=== PATIENT | female | born 1960 | race Caucasian/White ===

== ENCOUNTER 2020-01-02 09:52 | Outpatient (CLI) | payer BC, SELFPAY ==
--- NOTE | ~2020-01-02 | MM_ITS ---
EXAMINATION: MM screening shaheen BI w maliha HISTORY: Screening mammogram TECHNIQUE: Craniocaudal and mediolateral oblique 3-D tomosynthesis images were obtained and synthetic 2-D images were generated. CAD analysis was submitted and interpreted. COMPARISON: 12/23/2018, 12/07/2017, 06/27/2016 bilateral digital screening mammogram examinations BREAST PARENCHYMAL COMPOSITION: The breasts are almost entirely fatty. FINDINGS: There is no evidence of suspicious mass, calcification, or architectural distortion to sugg est malignancy in either breast. There has been no suspicious interval change. IMPRESSION: 1. No mammographic evidence of malignancy. 2. Recommend routine screening mammography in one year. BI-RADS Category 1: Negative Reviewed, dictated and finalized at location A.
== END 2020-01-02 09:53 | disposition home or self-care (01) ==
LOC: ANHIMG 09:54
PROVIDERS: PCP Family Medicine; Visit Provider Family Medicine
DX: Z12.31 Encounter for screening mammogram for malignant neoplasm of breast (principal)
CPT/HCPCS: 77063; 77067

== ENCOUNTER 2021-01-04 10:30 | Outpatient (CLI) | payer BC, SELFPAY ==
--- NOTE | ~2021-01-04 | MM_ITS ---
EXAMINATION: MM screening shaheen BI w maliha HISTORY: Screening mammogram TECHNIQUE: Craniocaudal and mediolateral oblique 3-D tomosynthesis images were obtained and synthetic 2-D images were generated. CAD analysis was submitted and interpreted. COMPARISON: 01/02/2020, 12/13/2018, 12/07/2017 bilateral digital screening mammogram examinations BREAST PARENCHYMAL COMPOSITION: The breasts are almost entirely fatty. FINDINGS: A biopsy marker is noted in the upper outer left breast; history of prior benign left breas t biopsy. Stable circumscribed small benign-appearing intramammary lymph node, posterior outer mid to upper lef t breast. There is no evidence of suspicious mass, calcification, or architectural distortion to suggest malign zakia in either breast. There has been no suspicious interval change. IMPRESSION: 1. No mammographic evidence of malignancy. 2. Recommend routine screening mammography in one year. BI-RADS Category 1: Negative Reviewed, dictated and finalized at location A.
== END 2021-01-04 10:31 | disposition home or self-care (01) ==
LOC: ANHIMG 10:32
PROVIDERS: PCP Family Medicine; Visit Provider Family Medicine
DX: Z12.31 Encounter for screening mammogram for malignant neoplasm of breast (principal)
CPT/HCPCS: 77063; 77067

== ENCOUNTER 2022-03-03 14:47 | Outpatient (CLI) | payer BC, SELFPAY ==
--- NOTE | ~2022-03-03 | MM_ITS ---
EXAMINATION: MM screening shaheen BI w maliha HISTORY: Screening mammogram TECHNIQUE: Craniocaudal and mediolateral oblique 3-D tomosynthesis images were obtained and synthetic 2-D images were generated. CAD analysis was submitted and interpreted. COMPARISON: 01/04/2021, 01/02/2020, 12/13/2018 bilateral screening mammogram examinations BREAST PARENCHYMAL COMPOSITION: The breasts are almost entirely fatty. FINDINGS: Biopsy marker is again noted on the left; history of prior benign left breast biopsy. There is no evidence of suspicious mass, calcification, or architectural distortion to suggest malignancy in either breast. There has been no suspicious interval change. IMPRESSION: 1. No mammographic evidence of malignancy. 2. Recommend routine screening mammography in one year. BI-RADS Category 1: Negative Reviewed, dictated and finalized at location A.
== END 2022-03-03 14:48 | disposition home or self-care (01) ==
LOC: ANHIMG 14:49
PROVIDERS: PCP Family Medicine; Visit Provider Family Medicine
DX: Z12.31 Encounter for screening mammogram for malignant neoplasm of breast (principal)
CPT/HCPCS: 77063; 77067

== ENCOUNTER 2023-07-27 10:05 | Outpatient (CLI) | payer MEDICARE, SELFPAY ==
--- NOTE | ~2023-07-27 | MM_ITS ---
EXAMINATION: MM screening shaheen BI w maliha HISTORY: Screening TECHNIQUE: Craniocaudal and mediolateral oblique 3-D tomosynthesis images were obtained and synthetic 2-D images were generated. CAD analysis was submitted and interpreted. COMPARISON: Comparison to multiple prior studies sequentially, with oldest reviewed study dated 08/2016. BREAST PARENCHYMAL COMPOSITION: The breasts are almost entirely fatty. FINDINGS: There is no evidence of suspicious mass, calcification, or architectural distortion to sugg est malignancy in either breast. There has been no suspicious interval change. IMPRESSION: 1. No mammographic evidence of malignancy. 2. Recommend routine screening mammography in one year. BI-RADS Category 1: Negative Reviewed, dictated and finalized at location A. FACTURING ENGINEER
== END 2023-07-27 10:06 | disposition home or self-care (01) ==
LOC: ANHIMG 10:09
PROVIDERS: PCP Family Medicine; Visit Provider Family Medicine
DX: Z12.31 Encounter for screening mammogram for malignant neoplasm of breast (principal)
CPT/HCPCS: 77063; 77067

== ENCOUNTER 2024-08-02 14:19 | Outpatient (CLI) | payer MEDICARE, SELFPAY ==
--- NOTE | ~2024-08-02 | MM_ITS ---
EXAMINATION: MM screening [facility] BI w maliha HISTORY: Screening mammogram TECHNIQUE: Craniocaudal and mediolateral oblique 3-D tomosynthesis images were obtained and synthetic 2-D images were generated. CAD analysis was submitted and interpreted. COMPARISON: 07/27/2023, 03/03/2022, 01/04/2021, 01/02/2020 BREAST PARENCHYMAL COMPOSITION:Not Dense. The breasts are almost entirely fatty FINDINGS: No suspicious mass, calcification, or architectural distortion are identified in either rajni ast to suggest malignancy. There has been no suspicious interval change. IMPRESSION: No mammographic evidence of malignancy. Recommend routine screening mammography in one year. BI-RADS Category 1: Negative Reviewed, dictated and finalized at location . R POLLUTION SCIENTIST
--- OUTSIDE RECORDS SUMMARY | 2024-08-02 16:36 | XMS_ITS | Clinical Summary ---
Author Organization [facility] Address [address], [address] [address] Phone Care Team Providers Care Maintenance Mechanic Technician Name Role Phone Randy Marcus MD Primary Care Provider [phone] Nick Cr DO Unavailable [phone] Allergies Active Allergy Reactions Criticality Noted Date Comments Codeine Sulfate Unknown Penicillins Unknown Medications atorvastatin (LIPITOR) 10 MG Tablet Take 10 mg by mouth daily. Active losartan potassium-hydro chlorothiazide (HYZAAR) 100-25 MG Tablet Take 1 Tab by mouth daily. Active Fluticasone Propionate (FLONASE NA) by Nasal route. Active folic acid (FOLVITE) 1 MG Tablet TAKE 1 TABLET DAILY 90 Tablet 3 10/23/2020 Active balsalazide (COLAZAL) 750 MG Capsule TAKE 3 CAPSULES THREE TIMES A DAY 90 Capsule 05/06/2021 Active Active Problems Problem Noted Date Diagnosed Date Ulcerative colitis Family History Medical History Relation Name Comments Heart Attack Father Hypertension Mother Relation Name Status Comments Father Mother Social History Tobacco Use Types Packs/Day Years Used Date Smoking Tobacco: Never Smokeless Tobacco: Never Tobacco Cessation:Counseling Given: No Alcohol Use Standard Drinks/Week Comments No 0 (1 standard drink = 0.6 oz pur e alcohol) Comments No Sex and Gender Information Value Date Recorded Sex Assigned at Not on file Legal Sex Female 10:46 PM CDT Gender Identity Not on file Sexual Orientation Not on file 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 Not on file Not on f ile Last Filed Vital Signs Vital Sign Reading Time Taken Comments Blood Pressure 144/90 01/16/2020 1:15 PM CDT Pulse 78 01/16/2020 1:15 PM CDT Temperature 36.1 C (97 F) 01/16/2020 1:15 PM CDT Respiratory Rate 16 01/16/2020 1:15 PM CDT Oxygen Saturation 98% 01/16/2020 1:15 PM CDT Inhaled Oxygen Concentration - - Weight 92.1 kg (203 lb) 01/16/2020 1:15 PM CDT Height 162.6 cm (5' 4 ) 06/19/2016 2:37 PM JAVA PROGRAMMER ANALYST Body Mass Index 34.84 06/19/2016 2:37 PM JAVA PROGRAMMER ANALYST Plan of Treatment Health Maintenance Due Date Last Done Comments Hepatitis C Virus (HCV) Screening 1960 TdaP Immunization 1960 Cologuard 2008 Immunochemical Fecal Occult Blood 2008 Mammogram 2008 Pneumococcal Immunization (50+ years) (1 of 1 - PCV) 2008 Zoster Immunization (1 of 2) 2008 Colonoscopy 06/09/2021 06/09/2019, 11/07, 05/17/2015, Additional history exists Colorectal Cancer Screening 06/09/2021 Influenza Immunization (#1) 2024 SARS-COV-2 Immunization ( - 2023-25 season) 2024 Respiratory Syncytial Virus (RSV) Immunization (Adult) (1 - 1-dose 75+ series) 2033 06/09/2019, 11/07, 05/17/2015, Additional history exists DEXA Bone Density Discontinued 07/28/2016 Hepatitis B Immunization Aged Out No longer eligible based on patient's age to complete this topic Meningococcal Immunization (ACWY) Aged Out No longer eligible based on patient's age to complete this topic Rotavirus Immunization Aged Out No lo nger eligible based on patient's age to complete this topic Procedures Procedure Name Priority Date/Time Associated Diagnosis Comments HM COLONOSCOPY Routine 06/09/2019 MESSI BONE DENSITOMETRY AXIAL SKELETON Routine 07/28/2016 10:38 AM JAVA PROGRAMMER ANALYST Ulcerative proctitis without complication (<HCC>) from Last 3 Months or Most Recently Relevant to Health Maintenance Results * HM COLONOSCOPY (06/09/2019) Nick Cr DO PROCEDURE/MINOR SURGICAL ORDERA BLES Final Result * MESSI BONE DENSITOMETRY AXIAL SKELETON (07/28/2016 10:38 AM JAVA PROGRAMMER ANALYST) Anatomical Region Laterality Modality BODY N/A Other 07/28/2016 12:5 7 PM JAVA PROGRAMMER ANALYST Impressions 07/28/2016 1:00 PM JAVA PROGRAMMER ANALYST IMPRESSION: Normal bone mineral density by WHO criteria. Bone mineral density: Normal (T-score above or = -1.0) Low bone mass (T-score between -1.0 and -2.5) replaces the previously used term osteopenia Osteoporosis (T-score = or below -2.5) Medical evaluation for secondary causes of low bone mineral density may be appropriate. FRAX is a World Health Organization validated fracture risk assessment tool that calculates a person's 10 year probability of a major osteoporosis related fracture and hip fracture. According to the National Osteoporosis Foundation guidelines, postmenopausal women and men age 50 or older with low bone mass and a 10 year probability of a major osteoporosis related fracture = or greater than 20% or a 10 year probability of a hip fracture = or greater than 3% should be considered for treatment. For further information, including treatment recommendations, please refer to the 2013 ISCD Official Positions (http://www.iscd.org) and the NOF's Clinician's Guide to Prevention and Treatment of Osteoporosis (http://www.nof.org/professionals/clinical-guidelines) Narrative 07/28/2016 1:00 PM JAVA PROGRAMMER ANALYST EXAMINATION: Bone density examination (hip and spine). HISTORY: 56 year old postmenopausal female with given history of ulcerative proctitis. Current Height: 64 inches Maximum Height: 64 inches Weight: 190 pounds RISK FACTORS: None. COMPARISON(S): None. PROCESS MACHINE OPERATOR/Tara. [employer] (S/N [id number]: FINDINGS: AP lumbar spine L1-L4 Total BMD is 1.136 g/dx1X-awghy is -0.5 Left Hip Total BMD is 0.996 g/sj1E-ysfvq is -0.1 Neck BMD is 0.893 g/vo7J-duxev is -1.0 THIS IS AN ELECTRONICALLY VERIFIED REPORT 07/28/2016 12:57 PM: Carla Goldsmith M.D. Radiologist AB: KATE Procedure Note Neri Skelton MD - 07/28/2016 EXAMINATION: Bone density examination (hip and spine). HISTORY: 56 year old postmenopausal female with given history of ulcerative proctitis. Current Height: 64 inches Maximum Height: 64 inches Weight: 190 pounds RISK FACTORS: None. COMPARISON(S): None. PROCESS MACHINE OPERATOR/MODESt. [employer] (S/N [id number]: FINDINGS: AP lumbar spine L1-L4 Total BMD is 1.136 g/mk5N-hfwlg is -0.5 Left Hip Total BMD is 0.996 g/pz7A-gvhgf is -0.1 Neck BMD is 0.893 g/xt7E-aeubf is -1.0 THIS IS AN ELECTRONICALLY VERIFIED REPORT 07/28/2016 12:57 PM: Carla Goldsmith M.D. Radiologist AB: KATE IMPRESSION: Normal bone mineral density by WHO criteria. Bone mineral density: Normal (T-score above or = -1.0) Low bone mass (T-score between -1.0 and -2.5) replaces the previously used term osteopenia Osteoporosis (T-score = or below -2.5) Medical evaluation for secondary causes of low bone mineral density may be appropriate. FRAX is a World Health Organization validated fracture risk assessment tool that calculates a person's 10 year probability of a major osteoporosis related fracture and hip fracture. According to the National Osteoporosis Foundation guidelines, postmenopausal women and men age 50 or older with low bone mass and a 10 year probability of a major osteoporosis related fracture = or greater than 20% or a 10 year probability of a hip fracture = or greater than 3% should be considered for treatment. For further information, including treatment recommendations, please refer to the 2013 ISCD Official Positions (http://www.iscd.org) and the NOF's Clinician's Guide to Prevention and Treatment of Osteoporosis (http://www.nof.org/professionals/clinical-guidelines) us Jessica Reed NIGHT WORKER, ATTENDANT COIN OPERATED LAUNDRY IMG DEXA ORDERABLES Kristen l Result from Last 3 Months or Most Recently Relevant to Health Maintenance Insurance [facility] Care Teams Maintenance Mechanic Technician Relationship Specialty Start Date End Date Randy Marcus MD [address] [place] [address] PCP - General Family Medicine 05/17/15 Nick Cr DO [address] [place] [address] Gastroenterology 12/08/16
--- OUTSIDE RECORDS SUMMARY | 2024-08-02 16:36 | XMS_ITS | Encounter Summary ---
Author Organization [facility] Address [address] [place] [address] Phone Care Team Providers Care Supervisor Pigment Making Name Role Phone Randy Marcus MD Primary Care Provider [phone] Nick Cr DO Unavailable [phone] Reason for Visit * Reason Comments Medication Refill Encounter Details Date Type Department Care Team (Late st Contact Info) Description 04/30/2021 Refill [facility] - [facility] - [place] [address] [place] [address] Yaneth Madera Jeimy, [facility] [address] [place] [address] Medication Refill Social History Tobacco Use Types Packs/Day Years Used Date Smoking Tobacco: Never Smokeless Tobacco: Never Alcohol Use Standard Drinks/Week Comments No 0 (1 standard drink = 0.6 oz pur e alcohol) Comments No Sex and Gender Information Value Date Recorded Sex Assigned at Not on file Legal Sex Female 10:46 PM CDT Gender Identity Not on file Sexual Orientation Not on file 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 Requested Prescriptions Pending Prescriptions Disp Refills balsalazide (COLAZAL) 750 MG Capsule [Pharmacy Med Name: BALSALAZIDE DISODIUM CAPS 750MG] 810 Capsule 3 Sig: TAKE 3 CAPSULES THREE TIMES A DAY Inflammatory Bowel Agents Protocol Failed - 04/30/2021 11:36 PM Failed - CBC on record in past 12 months No results found for: WBC, RBC, HEMATOCRIT, HEMOGLOBIN, MCV, MCH, MCHC Failed - Serum creatinine on record in past 12 months No results found for: CREATININE Failed - Urinalysis on record in past 12 months No results found for: USPG, URINEPH, ULEUK, UNIT, PROTEINRNUR, UGLQUAL, UKET, UROB, URINEBILI, URINERBC, URCOLOR, URCLARITY Passed - Visit with relevant provider in past 6 months or upcoming 90 days Recent Visits No visits were found meeting these conditions. Showing recent visits within past 182 days and meeting all other requirements Future Appointments Date Type Provider Dept 05/09/21 Appointment Yaneth Madera Jeimy, PAC [facility] [place] Showing future appointments within next 90 days and meeting all other requirements RICT OPERATIONS MANAGER documented in this encounter Plan of Treatment Not on file documented as of this encounter Visit Diagnoses Not on filedocumented in this encounter Care Teams Supervisor Pigment Making Relationship Specialty Start Date End Date Randy Marcus MD [address] [address] PCP - General Family Medicine 05/17/15 [place] [address] [address] Gastroenterology 12/08/16 documented as of this encounter
--- OUTSIDE RECORDS SUMMARY | 2024-08-02 16:36 | XMS_ITS | Encounter Summary ---
Author Organization [facility] Address [address] 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 balsalazide (COLAZAL) 750 MG Capsule [Pharmacy Med Name: BALSALAZIDE DISODIUM CAPS 750MG] 810 Capsule 3 Sig: TAKE 3 CAPSULES THREE TIMES A DAY Last fill: 08/07/2020 Patients last OV with GI: 01/16/2020 Next Office Visit with GI: None scheduled documented in this encounter Plan of Treatment Not on file documented as of this encounter Visit Diagnoses Not on filedocumented in this encounter Care Teams Aitchbone Breaker Relationship Specialty Start Date End Date Randy Marcus [place] [address] [address] PCP - General Family Medicine 05/17/15 Nick Cr [place] [address] [address] Gastroenterology 12/08/16 documented as of this encounter
--- OUTSIDE RECORDS SUMMARY | 2024-08-02 16:36 | XMS_ITS | Clinical Summary ---
Author Organization [facility] Address [address] [place] [address] Care Team Providers Care Staff Educator Name Role Phone Randy Marcus MD Primary Care Provider [phone] Allergies Active Allergy Reactions Criticality Noted Date Comments Codeine GI Upset 05/29/2022 Penicillins Anaphylaxis High 06/02/2012 As a child Medications Potassium 99 MG tablet Take 1 tablet by mouth daily. Active Multiple Vitamin (MULTI-VITAMIN) tablet Take 1 tablet by mouth daily. Active losartan-hydroC HLOROthiazide (HYZAAR) 100-25 MG tablet Take 1 tablet by mouth daily. 06/26/2012 Active loratadine (CLARITIN) 10 MG tablet Take 1 tablet by mouth daily. Active vitamin B-12 (CYANOCOBALAMIN ) 100 MCG tablet Take 1 tablet by mouth daily. Active balsalazide (COLAZAL) 750 MG capsule Take 2,250 mg by mouth 3 (three) times daily. Active folic acid (FOLVITE) 1 MG tablet Take 1 mg by mouth daily. Active metoprolol succinate ER (TOPROL-XL) 50 MG 24 hr tablet Take by mouth daily. Active atorvastatin (LIPITOR) 20 MG tablet Take 20 mg by mouth nightly at bedtime. Active Fluticasone Propionate (FLONASE NA) Active Social History Tobacco Use Types Packs/Day Years Used Date Smoking Tobacco: Never Smokeless Tobacco: Never Tobacco Cessation:Counseling Given: Not Answered Alcohol Use Standard Drinks/Week Comments Not Asked 0 (1 standard drink = 0.6 oz pur e alcohol) rarely Comments No Sex and Gender Information Value Date Recorded Sex Assigned at Not on file Legal Sex Female 9:40 PM CDT Gender Identity Not on file Sexual Orientation Not on file Last Filed Vital Signs Vital Sign Reading Time Taken Comments Blood Pressure 146/94 05/29/2022 8:30 AM SANDER SETTER Pulse 73 05/29/2022 8:30 AM SANDER SETTER Temperature 37.1 C (98.7 F) 05/29/2022 8:07 AM SANDER SETTER Respiratory Rate 16 05/29/2022 8:30 AM SANDER SETTER Oxygen Saturation 98% 05/29/2022 8:30 AM SANDER SETTER Inhaled Oxygen Concentration - - Weight 77.1 kg (170 lb) 05/19/2022 4:43 PM SANDER SETTER Height 162.6 cm (5' 4 ) 05/19/2022 4:43 PM SANDER SETTER Body Mass Index 29.18 05/19/2022 4:43 PM SANDER SETTER Plan of Treatment Health Maintenance Due Date Last Done Comments Hepatitis C 1976 DTaP, Tdap and Td Vaccines ( 1 - Tdap) 1977 Mammogram Screening 1998 Zoster Vaccines (1 of 2) 2008 Dexa Scan (General) 2023 Pneumococcal Vaccine: 65+ Years (1 of 1 - PCV) 2023 COVID-19 Vaccine (4 - 2023-2 5 season) 2024 06/03/2021, 08/18/2020, 07/21/2020 Influenza Adult (#1) 2024 Colorectal Cancer Screening Colonoscopy (10 Years) 05/29/2032 05/29/2022, 05/29/2022 RSV Immunization or 60+ Years (1 - 1-dose 75+ series) 2033 Meningococcal B Vaccine Aged Out No l onger eligible based on patient's age to complete this topic Meningococcal Vaccine Aged Out No herber rere eligible based on patient's age to complete this topic RSV Immunizations Under 20 Months Aged Out No longer eligible b ased on patient's age to complete this topic Procedures Procedure Name Priority Date/Time Associated Diagnosis Comments COLONOSCOPY Routine 05/29/2022 6:28 AM SANDER SETTER from Last 3 Months or Most Recently Relevant to Health Maintenance Insurance [facility] Care Teams Staff Educator Relationship Specialty Start Date End Date Randy Marcus MD [address] [place] [address] PCP - General FAMILY PRACTICE 05/29/22
--- OUTSIDE RECORDS SUMMARY | 2024-08-02 16:37 | XMS_ITS | Encounter Summary ---
Author Organization [facility] Address [address] [place] [address] Care Team Providers Care Wood Inspector Name Role Phone Randy Marcus MD Primary Care Provider [phone] Encounter Details Date Type Department Care Team (Latest Contact Info) Description 04/13/2018 Abstract [facility] , Ashly Au MD Social History Tobacco Use Types Packs/Day Years Used Date Smoking Tobacco: Never Assessed Comments Unknown Sex and Gender Information Value Date Recorded Sex Assigned at Not on file Legal Sex Female 9:40 PM CDT Gender Identity Not on file Sexual Orientation Not on file documented as of this encounter Plan of Treatment Not on file documented as of this encounter Visit Diagnoses Not on filedocumented in this encounter Care Teams Wood Inspector Relationship Specialty Start Date End Date Randy Marcus MD [address] [place] [address] PCP - General FAMILY PRACTICE 05/29/22 documented as of this encounter
== END 2024-08-02 14:20 | disposition home or self-care (01) ==
LOC: ANHIMG 14:20
PROVIDERS: PCP Family Medicine; Visit Provider Family Medicine
DX: Z12.31 Encounter for screening mammogram for malignant neoplasm of breast (principal)
CPT/HCPCS: 77063; 77067

== ENCOUNTER 2024-12-13 08:19 | Outpatient (CLI) | payer MEDICARE, SELFPAY ==
--- OUTSIDE RECORDS SUMMARY | 2024-12-13 08:22 | XMS_ITS | Encounter Summary ---
Author Organization [facility] Address [address] [place] [address] Care Team Providers Care Shirt Operator Name Role Phone Randy Marcus MD Primary Care Provider [phone] Encounter Details Date Type Department Care Team (Latest Contact Info) Description 04/13/2018 Abstract [facility] , Ashly Au MD [...] on filedocumented in this encounter Care Teams Shirt Operator Relationship Specialty Start Date End Date Randy Marcus MD [address] [place] [address] PCP - General FAMILY PRACTICE 05/29/22 documented as of this encounter
--- OUTSIDE RECORDS SUMMARY | 2024-12-13 08:22 | XMS_ITS | Encounter Summary ---
Author Organization [facility] Address [address] [facility] 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 file Not on f ile documented as of this encounter Miscellaneous Notes * Telephone Encounter - An Hadley RN - 05/03/2021 10:35 AM SUPERVISOR CIGAR PROCESSING Medication failed the protocol, provider to review [...] Appointment Yaneth Madera Jeimy, PAC [facility] [place] Showing future appointments within next 90 days and meeting all other requirements RVISOR CIGAR PROCESSING documented in this encounter Plan of Treatment Not on file documented as of this encounter Visit Diagnoses Not on filedocumented in this encounter Care Teams Spare Hand Relationship Specialty Start Date End Date Randy Marcus MD [address] [place] [address] PCP - General Family Medicine 05/17/15 Nick Cr [place] [address] [address] Gastroenterology 12/08/16 documented as of this encounter
--- OUTSIDE RECORDS SUMMARY | 2024-12-13 08:22 | XMS_ITS | Clinical Summary ---
Author Organization [facility] [place] [facility] Address [address] [place] [id number] Care Team Providers Care Seal Skinner Name Role Phone Randy Marcus MD Primary Care Provider [phone] Allergies Active Allergy Reactions Criticality Noted Date [...] Comments Blood Pressure 146/94 05/29/2022 8:30 AM RESTAURANT CULINARY MANAGER Pulse 73 05/29/2022 8:30 AM RESTAURANT CULINARY MANAGER Temperature 37.1 C (98.7 F) 05/29/2022 8:07 AM RESTAURANT CULINARY MANAGER Respiratory Rate 16 05/29/2022 8:30 AM RESTAURANT CULINARY MANAGER Oxygen Saturation 98% 05/29/2022 8:30 AM RESTAURANT CULINARY MANAGER Inhaled Oxygen Concentration - - Weight 77.1 kg (170 lb) 05/19/2022 4:43 PM RESTAURANT CULINARY MANAGER Height 162.6 cm (5' 4) 05/19/2022 4:43 PM RESTAURANT CULINARY MANAGER Body Mass Index 29.18 05/19/2022 4:43 PM RESTAURANT CULINARY MANAGER Plan of Treatment Health Maintenance Due Date Last Done Comments Hepatitis C 1976 DTaP, Tdap and Td Vaccines ( 1 - Tdap) 1977 Mammogram Screening 1998 Pneumococcal Vaccine: 50+ Years (1 of 1 - PCV) 2008 Zoster Vaccines (1 of 2) 2008 Dexa Scan (General) 2023 COVID-19 Vaccine ( - 2023-2 5 season) 2024 06/03/2021, 08/18/2020, 07/21/2020 Colorectal Cancer Screening Colonoscopy (10 Years) 05/29/2032 [...] Diagnosis Comments COLONOSCOPY Routine 05/29/2022 6:28 AM RESTAURANT CULINARY MANAGER from Last 3 Months or Most Recently Relevant to Health Maintenance Insurance Care Teams Seal Skinner Relationship Specialty Start Date End Date Randy Marcus MD [address] [place] [address] PCP - General FAMILY PRACTICE 05/29/22
--- OUTSIDE RECORDS SUMMARY | 2024-12-13 08:22 | XMS_ITS | Encounter Summary ---
Author Organization [facility] Address [address] 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
--- OUTSIDE RECORDS SUMMARY | 2024-12-13 08:22 | XMS_ITS | Clinical Summary ---
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 Not on [...] 1:15 PM CDT Height 162.6 cm (5' 4) 06/19/2016 2:37 PM ROCK CRUSHER OPERATOR Body Mass Index 34.84 06/19/2016 2:37 PM ROCK CRUSHER OPERATOR Plan of Treatment Health Maintenance Due Date Last Done Comments Hepatitis C Virus (HCV) Screening 1960 TdaP Immunization 1960 Cologuard 2003 Immunochemical Fecal Occult Blood 2003 Pneumococcal Immunization (50+ years) (1 of 1 - PCV) 2008 Zoster Immunization (1 of 2) 2008 Colonoscopy 06/09/2021 06/09/2019, 06/02/2017, 05/17/2015, Additional history exists Colorectal Cancer Screening 06/09/2021 SARS-COV-2 Immunization ( - 2023- season) 2024 Influenza Immunization (#1) 2025 Respiratory Syncytial Virus (RSV) Immunization (Adult) (1 - 1-dose 75+ series) 2033 DEXA Bone Density Discontinued 07/28/2016 Hepatitis B Immunization Aged Out No longer eligible based on patient's age to complete this topic Human Papillomavirus (HPV) Immunization Aged Out No longer eligible based [...] DENSITOMETRY AXIAL SKELETON Routine 07/28/2016 10:38 AM ROCK CRUSHER OPERATOR Ulcerative proctitis without complication (<HCC>) from Last 3 Months or Most Recently Relevant to Health Maintenance Results * HM COLONOSCOPY (06/09/2019) Nick Cr DO PROCEDURE/MINOR SURGICAL ORDERA BLES Final Result * MESSI BONE DENSITOMETRY AXIAL SKELETON (07/28/2016 10:38 AM ROCK CRUSHER OPERATOR) Anatomical Region Laterality Modality BODY N/A Other 07/28/2016 12:5 7 PM ROCK CRUSHER OPERATOR Impressions 07/28/2016 1:00 PM ROCK CRUSHER OPERATOR IMPRESSION: Normal bone mineral density by WHO [...] of Osteoporosis (http://www.nof.org/professionals/clinical-guidelines) Narrative 07/28/2016 1:00 PM ROCK CRUSHER OPERATOR EXAMINATION: Bone density examination (hip and spine). HISTORY: 56 year old postmenopausal female with given history of ulcerative proctitis. Current Height: 64 inches Maximum Height: 64 inches Weight: 190 pounds RISK FACTORS: None. COMPARISON(S): None. BLOOD BANK COORDINATOR/MODESt. [employer] (S/N [id number]: FINDINGS: AP lumbar spine L1-L4 Total BMD is 1.136 g/qy7L-lbwmg is -0.5 Left Hip Total BMD is 0.996 g/ux9U-miuzk is -0.1 Neck BMD is 0.893 g/kz1K-wskue is -1.0 THIS IS AN ELECTRONICALLY VERIFIED REPORT 07/28/2016 12:57 PM: Neri Skelton M.D. Neri Skelton M.D. Radiologist AB: KATE Procedure Note Neri Skelton MD - 07/28/2016 EXAMINATION: Bone density examination (hip and spine). HISTORY: 56 year old postmenopausal female with given history of ulcerative proctitis. Current Height: 64 inches Maximum Height: 64 inches Weight: 190 pounds RISK FACTORS: None. COMPARISON(S): None. BLOOD BANK COORDINATOR/MODESt. [employer] (S/N [id number]: FINDINGS: AP lumbar spine L1-L4 Total BMD is 1.136 g/pt2X-oddjn is -0.5 Left Hip Total BMD is 0.996 g/gk3J-wuken is -0.1 Neck BMD is 0.893 g/gn1M-umumx is -1.0 THIS IS AN ELECTRONICALLY VERIFIED [...] Treatment of Osteoporosis (http://www.nof.org/professionals/clinical-guidelines) us Jessica Reed APRN, CYBER SPECIAL AGENT IMG DEXA ORDERABLES Kristen green Result from Last 3 Months or Most Recently Relevant to Health Maintenance Insurance [facility] Care Teams Refinery Superintendent Relationship Specialty Start Date End Date Randy Marcus MD [address] [place], [place] [id number] PCP - General Family Medicine 05/17/15 Nick Cr DO [address] [address] Gastroenterology 12/08/16
[2024-12-13 08:44] LABS: Hematocrit 44.9 % (37.0-47.0); Hemoglobin 14.4 g/dL (12.0-15.0); Mean Corpuscular HGB Conc 32.1 g/dl (32-36); Mean Corpuscular Hemoglobin 28.5 pg (26-34); Mean Corpuscular Volume 88.7 fl (80-100); Platelet Count Result 289 k/mm3 (150-375); Red Blood Count 5.06 M/mm3 (4.2-5.4); White Blood Count 8.6 K/mm3 (4.5-10.0)
[2024-12-13 09:04] LABS: Alanine Aminotransferase 22 U/L (6-35); Albumin Level 4.3 g/dL (3.5-5.1); Alkaline Phosphatase 33 U/L (38-126); Anion Gap 9 mmol/L (4-12); Aspartate Amino Transferase 32 U/L (14-36); Bilirubin,Total 0.6 mg/dL (0.2-1.3); Blood Urea Nitrogen 11 mg/dL (7-17); Calcium 9.8 mg/dL (8.4-10.2); Carbon Dioxide 29 mmol/L (22-30); Chloride 102 mmol/L (98-107); Cholesterol 143 mg/dL (0-200); Estimated Glomerular Filt Rate > 60; Glucose 92 mg/dL (65-110); HDL Direct 58 mg/dL; Potassium 3.8 mmol/L (3.4-5.0); Sodium 140 mmol/L (137-145); Total Protein 7.5 g/dL (6.3-8.2); Triglycerides 173 mg/dL (<150)
[2024-12-13 09:33] LABS: Thyroid Stimulating Hormone 2.140 uIU/mL (0.465-4.680)
[2024-12-13 10:03] LABS: Iron 88 ug/dL (37-170)
[2024-12-13 10:13] LABS: Percent Iron Saturation 27 % (20-50)
[2024-12-13 10:15] LABS: Vitamin B12 > 1000.0 pg/mL (239-931)
== END 2024-12-13 08:20 | disposition home or self-care (01) ==
LOC: ANHLAB 08:20
PROVIDERS: PCP Family Medicine; Visit Provider Nurse Practitioner Family
DX: R74.8 Abnormal levels of other serum enzymes (principal); E55.9 Vitamin D deficiency, unspecified; I10 Essential (primary) hypertension; E78.2 Mixed hyperlipidemia
CPT/HCPCS: 36415; 80053; 80061; 82306; 82607; 82746; 83540; 83550; 84443; 85027